=== PATIENT | male | born 1970 | race Caucasian/White ===

== ENCOUNTER 2018-06-11 20:21 | Emergency (ER) | payer OTHER ==
[~2018-06-11] VITALS: Ht 177.8 cm; Wt 117.9 kg
[2018-06-11 23:21] LABS: BASOPHILS ABSOLUTE AUTO 0.04 K/mm3 (0.00-0.23); BASOPHILS PERCENT AUTO 0 % (0-2); EOSINOPHILS PERCENT AUTO 2 % (0-6); Hemoglobin 15.2 g/dL (13.5-17.5); IMMATURE GRAN ABSOLUTE AUTO 0.03 K/mm3 (0.00-0.10); IMMATURE GRAN PERCENT AUTO 0 % (0-1); LYMPHOCYTES ABSOLUTE AUTO 2.44 K/mm3 (0.84-5.20); LYMPHOCYTES PERCENT AUTO 22 % (21-46); MONOCYTES ABSOLUTE AUTO 0.95 K/mm3 (0.16-1.47); MONOCYTES PERCENT AUTO 8 % (4-13); Mean Corpuscular HGB 29.9 pg (26.0-34.0); Mean Corpuscular HGB Conc 32.3 g/dL (31.5-36.5); Mean Corpuscular Volume 93 fL (80-100); Mean Platelet Volume 11.8 fL (9.1-12.4); NEUTROPHILS ABSOLUTE AUTO 7.71 K/mm3 (1.96-9.15); NEUTROPHILS PERCENT AUTO 68 % (41-73); Platelet Count 155 K/mm3 (150-400); RDW Coefficient Variation 12.7 % (11.7-14.2); RDW Standard Deviation 43.6 fL (35.1-46.3); Red Blood Cell Count 5.08 M/mm3 (4.30-5.90); White Blood Cell Count 11.37 K/mm3 (4.00-11.30)
[2018-06-11 23:40] LABS: Alanine Aminotransfer (ALT/SGP 49 U/L (12-78); Albumin, Blood 4.1 g/dL (3.4-5.0); Albumin/Globulin Ratio 1.2 (0.8-1.8); Alk Phos 77 U/L (50-136); Anion Gap 8 mmol/L (6-16); Aspartate Aminotrans (AST/SGOT 29 U/L (12-37); Bilirubin, Total 0.6 mg/dL (0.1-1.0); Blood Urea Nitrogen 14 mg/dL (8-24); Bun/Creatinine Ratio 14.9 (12.0-20.0); CO2, Blood 26 mmol/L (21-32); Calcium, Blood 8.7 mg/dL (8.5-10.1); Chloride, Blood 107 mmol/L (98-108); Creatinine, Blood 0.94 mg/dL (0.60-1.20); Globulin, Blood 3.5 g/dL (2.2-4.0); Glomerular Filtration Rate >60 (60-); Glucose, Blood 93 mg/dL (70-99); Potassium, Blood 4.2 mmol/L (3.5-5.5); Sodium, Blood 141 mmol/L (136-145); Total Protein, Blood 7.6 g/dL (6.4-8.2)
[2018-06-12] MEDS ORDERED: Augmentin 875-1 EACH PO (00:48)
== END 2018-06-12 01:09 | disposition home or self-care (01) ==
LOC: ER 20:21
PROVIDERS: Emergency Medicine
DX: K57.32 Diverticulitis of large intestine without perforation or abscess without bleeding (principal); Z88.8 Allergy status to other drugs, medicaments and biological substances; F17.200 Nicotine dependence, unspecified, uncomplicated
CPT/HCPCS: 36415; 74176; 80053; 85025; 96360; 99284-25; J2405; J3010; J7030

== ENCOUNTER → 2022-12-19 | Outpatient (CLI) | payer OTHER ==
[~2022-12-19] MED LIST: Augmentin 875-1 EACH PO; CYCL10 PO; METF500 PO; NAPR500 PO
[2022-12-21 12:09] LABS: COTININE Negative ng/mL (Cutoff=300)
== END | disposition home or self-care (01) ==
LOC: LAB 15:56 → LAB SHORT 15:56
PROVIDERS: Nurse Practitioner Family
DX: Z01.812 Encounter for preprocedural laboratory examination (principal)

== ENCOUNTER 2023-02-23 10:48 | Day surgery (SDC) | payer OTHER ==
[~2023-02-23] VITALS: Ht 176 cm; Wt 136.3 kg
[~2023-02-23 10:48] MED LIST changes: +FLUO.1OPSU BOTHEYES; +LORA10ER PO; +LOSA50 PO; +MULVITA PO; +Nicoderm Cq1 EACH TOP
[2023-02-23 12:08] VITALS: BP 119/86
--- NOTE | 2023-02-23 12:19 | NUR ---
Ambulatory in Day Surgery. Patient states colon prep results clear/yellow. History, Chart, Medications and Allergies reviewed before start of procedure. Patient confirms NPO status and agrees with scheduled surgery. Pre-Op teaching done. Pt verbalizes understanding. Patient States Post-Procedure ride home has been arranged.
--- NOTE | 2023-02-23 12:36 | NUR ---
02/23/23 [address] RODRIGUEZ; SEE ANESTHESIA RECORDS.
[2023-02-23 14:15] VITALS: BP 119/81
--- NOTE | 2023-02-23 14:36 | NUR ---
Patient up to Ambulate independently. Gait steady. Discharge instructions reviewed with patient. Patient verbalizes understanding. Copy given to patient to take home. Discharged via wheelchair to private car for ride home.
== END 2023-02-23 14:33 | disposition home or self-care (01) ==
LOC: ORSCMMR 10:48 → ORD 12:15 → ORSCMMR 14:33
PROVIDERS: Surgery
PROC: 0DBP8ZX Excision of Rectum, Via Natural or Artificial Opening Endoscopic, Diagnostic (ICD-10-PCS; principal; 2023-02-23 12:15)
PROC: 0DB78ZX Excision of Stomach, Pylorus, Via Natural or Artificial Opening Endoscopic, Diagnostic (ICD-10-PCS; principal; 2023-02-23 12:15)
PROC: 0DB48ZX Excision of Esophagogastric Junction, Via Natural or Artificial Opening Endoscopic, Diagnostic (ICD-10-PCS; principal; 2023-02-23 12:15)
DX: K21.9 Gastro-esophageal reflux disease without esophagitis (principal); Z87.19 Personal history of other diseases of the digestive system; Z12.11 Encounter for screening for malignant neoplasm of colon; K62.1 Rectal polyp; K57.30 Diverticulosis of large intestine without perforation or abscess without bleeding; K29.70 Gastritis, unspecified, without bleeding; I10 Essential (primary) hypertension; E11.9 Type 2 diabetes mellitus without complications; F17.210 Nicotine dependence, cigarettes, uncomplicated; E66.01 Morbid (severe) obesity due to excess calories; Z68.41 Body mass index [BMI] 40.0-44.9, adult; Z79.899 Other long term (current) drug therapy
CPT/HCPCS: 82947; 88305; 88342; J2704; J7120

== ENCOUNTER 2024-05-22 00:20 | Inpatient (IN) | payer OTHER ==
[~2024-05-22] VITALS: Ht 180.3 cm; Wt 137.2 kg
[2024-05-22] MEDS ORDERED: Albuterol 2.5 MG/3 ML VIAL INH ONE (00:25)
[2024-05-22 00:32] LABS: Hematocrit 48.1 % (37.0-53.0); Mean Corpuscular HGB 29.5 pg (26.0-34.0); Mean Corpuscular HGB Conc 33.3 g/dL (31.5-36.5); Mean Corpuscular Volume 89 fL (80-100); Platelet Count 150 K/mm3 (150-400); RDW Coefficient Variation 14.1 % (11.7-14.2); RDW Standard Deviation 45.8 fL (35.1-46.3); Red Blood Cell Count 5.42 M/mm3 (4.30-5.90); White Blood Cell Count 17.88 K/mm3 (4.00-11.30)
[2024-05-22 00:38] LABS: pH Blood Venous 7.32 (7.34-7.37)
[2024-05-22 00:39] LABS: Base Excess Venous 4.3 mmol/L; Bicarbonate Venous 25.4 mmol/L (24.0-30.0); PCO2 Venous 58.9 mmHg (38-42)
[2024-05-22] MEDS ORDERED: Mag Hydrox/AL Hydrox/Simeth 30 ML UDC PO ONE (00:45)
[2024-05-22] MEDS ORDERED: Ondansetron HCl 2 MG / ML 2ML Vial IV ONE (00:45)
[2024-05-22 00:50] LABS: Albumin, Blood 3.1 g/dL (3.4-5.0); Albumin/Globulin Ratio 0.8 (0.8-1.8); Bilirubin, Total 0.8 mg/dL (0.1-1.0); Bun/Creatinine Ratio 16.3 (12.0-20.0); Calcium, Blood 8.3 mg/dL (8.5-10.1); Creatinine, Blood 1.96 mg/dL (0.60-1.20); Globulin, Blood 3.8 g/dL (2.2-4.0); Magnesium, Blood 2.3 mg/dL (1.6-2.4); Potassium, Blood 4.4 mmol/L (3.5-5.5); Total Protein, Blood 6.9 g/dL (6.4-8.2)
[2024-05-22 00:51] LABS: BAND PERCENT MAN 30 % (0-8); BASOPHILS PERCENT MAN 0 % (0-2); EOSINOPHILS PERCENT MAN 0 % (0-6); LYMPHOCYTES ABSOLUTE MAN 0.71 K/mm3 (0.84-5.20); LYMPHOCYTES PERCENT MAN 4 % (21-46); MONOCYTES ABSOLUTE MAN 0.71 K/mm3 (0.16-1.47); MONOCYTES PERCENT MAN 4 % (4-13); NEUTROPHILS ABSOLUTE MAN 16.44 K/mm3 (1.96-9.15); SEG NEUTROPHILS PERCENT MAN 62 % (41-73); TOTAL CELLS COUNTED 100
[2024-05-22] MEDS ORDERED: Azithromycin 500 MG in NS 250 ML IV ONE (00:55)
[2024-05-22] MEDS ORDERED: NS 1,000 ML IV SCH ×2 (00:55→01:15)
[2024-05-22] MEDS ORDERED: CefTRIAXone Sodium 1,000 MG in NS 50 ML IV ONE (00:55)
[2024-05-22] MEDS ORDERED: CefTRIAXone Sodium 2,000 MG in NS 100 ML IV ONE (01:00)
[2024-05-22 01:11] LABS: Influenza B, PCR NEGATIVE (NEGATIVE); Resp Syncytial Virus, PCR NEGATIVE (NEGATIVE); SARS-Cov-2 (COVID-19) PCR, MMC NEGATIVE (NEGATIVE)
[2024-05-22 01:20] LABS: Influenza A, PCR POSITIVE (NEGATIVE)
[2024-05-22] MEDS ORDERED: Calcium Carbonate 500 MG Tab Chew PO ONE (01:40)
[2024-05-22] MEDS ORDERED: FLU VACC TS2024-25(6MOS UP)/PF 45 MCG/0.5 ML SYRINGE IM ONE (01:40)
[2024-05-22] MEDS ORDERED: Ipratropium/Albuterol SulF 2.5-0.5MG/3 ML Amp INH PRN (01:40)
[2024-05-22] MEDS ORDERED: Ondansetron HCl 2 MG / ML 2ML Vial IV PRN (01:45)
[2024-05-22] MEDS ORDERED: NS 1,000 ML IV ONE (01:45)
[2024-05-22] MEDS ORDERED: MethylPREDNISolone Sod Succ 125 MG Vial IV SCH (02:00)
[2024-05-22] MEDS ORDERED: Acetaminophen 325 MG TABLET PO PRN (02:35)
[2024-05-22 03:30] LABS: Source, Urine Clean Catch
[2024-05-22 03:32] LABS: Hematocrit 47.8 % (37.0-53.0); Hemoglobin 15.8 g/dL (13.5-17.5); Mean Corpuscular HGB 29.6 pg (26.0-34.0); Mean Corpuscular HGB Conc 33.1 g/dL (31.5-36.5); Mean Corpuscular Volume 90 fL (80-100); Mean Platelet Volume 10.7 fL (9.1-12.4); Platelet Count 143 K/mm3 (150-400); RDW Coefficient Variation 14.3 % (11.7-14.2); Red Blood Cell Count 5.34 M/mm3 (4.30-5.90); White Blood Cell Count 17.21 K/mm3 (4.00-11.30)
[2024-05-22 03:37] LABS: Bilirubin, Urine Neg (Neg); Blood, Urine 2+ (Neg); Glucose Qualitative, Urine Neg (Neg); Ketones, Urine Neg (Neg); Leukocyte Esterase, Urine 1+ (Neg); Nitrite, Urine Neg (Neg); Protein, Urine 3+ (Neg); Specific Gravity, Urine 1.025 (1.003-1.022); Urobilinogen, Urine 1+ (Normal)
[2024-05-22 03:50] LABS: Appearance, Urine Hazy (Clear); Color, Urine Yellow (P-Yellow)
[2024-05-22 03:51] LABS: Bacteria Few /hpf; Red Blood Cells, Urine 0-2 /hpf (0-2); Squamous Epithelial Cells Rare /hpf (Few)
[2024-05-22 03:52] LABS: Amorphous Mod (0-Heavy)
[2024-05-22 04:01] LABS: Albumin/Globulin Ratio 0.8 (0.8-1.8); Bilirubin, Total 0.9 mg/dL (0.1-1.0); Bun/Creatinine Ratio 20.1 (12.0-20.0); Calcium, Blood 8.1 mg/dL (8.5-10.1); Creatinine, Blood 1.54 mg/dL (0.60-1.20); Globulin, Blood 3.9 g/dL (2.2-4.0); Magnesium, Blood 2.2 mg/dL (1.6-2.4); Potassium, Blood 4.3 mmol/L (3.5-5.5); Total Protein, Blood 6.9 g/dL (6.4-8.2)
[2024-05-22 04:17] LABS: BAND PERCENT MAN 41 % (0-8); BASOPHILS PERCENT MAN 0 % (0-2); EOSINOPHILS PERCENT MAN 0 % (0-6); LYMPHOCYTES ABSOLUTE MAN 1.03 K/mm3 (0.84-5.20); LYMPHOCYTES PERCENT MAN 6 % (21-46); MONOCYTES ABSOLUTE MAN 1.03 K/mm3 (0.16-1.47); MONOCYTES PERCENT MAN 6 % (4-13); MYELOCYTE ABSOLUTE MAN 0.17 K/mm3 (0.00-0.00); MYELOCYTE PERCENT MAN 1 % (0-0); NEUTROPHILS ABSOLUTE MAN 14.97 K/mm3 (1.96-9.15); SEG NEUTROPHILS PERCENT MAN 46 % (41-73); TOTAL CELLS COUNTED 100
[2024-05-22 05:00] VITALS: BP 126/95
[2024-05-22] MEDS ORDERED: Naproxen 250 MG TAB PO PRN (05:20)
--- NOTE | 2024-05-22 06:51 | NUR ---
SHIFT SUMMARY PATIENT ARRIVED TO PCU 08 VIA STRETCHER. HE IS ALERT AND ORIENTED X4, STEADY ON HIS FEET AND ABLE TO AMBULATE WITH MINIMAL ASSISTANCE FOR LINE MANAGEMENT. PATIENT ARRIVED ON 12 LITERS O2 VIA HIGH FLOW NASAL CANULA, SOME DYSPNIA NOTED, PATIENT HAS BEEN TITRATED TO 6 LITERS O2 CURRENTLY WITH SPO2 >90%. PATIENT MEDICATED PER EMAR FOR HEADACHE. VITAL SIGNS STABLE, SINUS RHYTHM ON TELE. WILL CONTINUE TO MONITOR. CALL LIGHT WITHIN REACH.
[2024-05-22 07:16] VITALS: BP 134/88
--- NOTE | 2024-05-22 07:29 | NUR ---
CRITICAL LAB RECEIVED AT 0719 FOR LACTIC OF 2.8. CHARGE NOTIFIED AT 0720, MD NOTIFIED AT 0725. NO NEW ORDERS AT THIS TIME.
[2024-05-22 08:49] LABS: Bicarbonate Venous 23.4 mmol/L (24.0-30.0); pH Blood Venous 7.36 (7.34-7.37)
[2024-05-22] MEDS ORDERED: Enoxaparin 40 MG/0.4 ML SYR SC SCH (09:00)
[2024-05-22] MEDS ORDERED: Lactated Ringer's 1,000 ML IV SCH (10:25)
[2024-05-22 12:44] VITALS: BP 147/107
[2024-05-22] MEDS ORDERED: Pantoprazole Sodium 40 MG Tab PO SCH (13:00)
[2024-05-22] MEDS ORDERED: Calcium Carbonate 500 MG Tab Chew PO PRN (15:25)
[2024-05-22 15:49] VITALS: BP 158/97
--- NOTE | 2024-05-22 18:10 | NUR ---
SHIFT SUMMARY PT ALERT AND ORIENTED X4 T/O SHIFT. PT DENIED ANY PAIN. SINUS RHYTHM, HR 80'S-90'S, PT DENIED CHEST PAIN/PRESSURE. PT CURRENTLY ON 8L HF/HUM NC AND SATTING ABOVE 90%. PT CONTINENT OF URINE AND STOOL. PT REPORTED INDIGESTION AND WAS TREATED WITH TUMS. NO ACUTE EVENTS THIS SHIFT.
[2024-05-22 20:02] VITALS: BP 168/114
[2024-05-22] MEDS ORDERED: HydrALAZINE HCl 25 MG Tab PO PRN (21:00)
[2024-05-22] MEDS ORDERED: Azithromycin 500 MG in NS 250 ML IV SCH (21:00)
[2024-05-22] MEDS ORDERED: CefTRIAXone Sodium 1,000 MG in NS 100 ML IV SCH (21:00)
[2024-05-23] VITALS (7 sets, daily range): BP systolic 127–180; BP diastolic 82–110
[2024-05-23 06:00] LABS: BASOPHILS ABSOLUTE AUTO 0.07 K/mm3 (0.00-0.23); BASOPHILS PERCENT AUTO 0 % (0-2); EOSINOPHILS ABSOLUTE AUTO 0.13 K/mm3 (0.00-0.68); EOSINOPHILS PERCENT AUTO 1 % (0-6); Hematocrit 48.1 % (37.0-53.0); Hemoglobin 15.9 g/dL (13.5-17.5); IMMATURE GRAN ABSOLUTE AUTO 0.16 K/mm3 (0.00-0.10); IMMATURE GRAN PERCENT AUTO 1 % (0-1); LYMPHOCYTES ABSOLUTE AUTO 1.26 K/mm3 (0.84-5.20); LYMPHOCYTES PERCENT AUTO 6 % (21-46); MONOCYTES ABSOLUTE AUTO 1.49 K/mm3 (0.16-1.47); MONOCYTES PERCENT AUTO 7 % (4-13); Mean Corpuscular HGB 29.8 pg (26.0-34.0); Mean Corpuscular HGB Conc 33.1 g/dL (31.5-36.5); Mean Corpuscular Volume 90 fL (80-100); Mean Platelet Volume 11.8 fL (9.1-12.4); NEUTROPHILS ABSOLUTE AUTO 19.21 K/mm3 (1.96-9.15); NEUTROPHILS PERCENT AUTO 86 % (41-73); Platelet Count 160 K/mm3 (150-400); RDW Coefficient Variation 14.2 % (11.7-14.2); RDW Standard Deviation 47.4 fL (35.1-46.3); Red Blood Cell Count 5.33 M/mm3 (4.30-5.90); White Blood Cell Count 22.32 K/mm3 (4.00-11.30)
[2024-05-23 06:27] LABS: Albumin/Globulin Ratio 0.7 (0.8-1.8); Bilirubin, Total 0.4 mg/dL (0.1-1.0); Bun/Creatinine Ratio 28.1 (12.0-20.0); Calcium, Blood 9.2 mg/dL (8.5-10.1); Creatinine, Blood 0.78 mg/dL (0.60-1.20); Globulin, Blood 4.4 g/dL (2.2-4.0); Total Protein, Blood 7.4 g/dL (6.4-8.2)
--- NOTE | 2024-05-23 06:45 | NUR ---
SHIFT SUMMARY HTN NOTED OVERNIGHT. NOC UPDATED. NEW PRN ORDERS FOR HYDRALAZINE. SEE ORDER DETAILS. WEANED FROM 6L O2 TO 4L O2 VIA NC THIS SHIFT. PT APPEARS TO BE TOLERATING THIS WELL.
[2024-05-23] MEDS ORDERED: Losartan Potassium 50 MG Tab PO ONE (10:00)
[2024-05-23] MEDS ORDERED: Famotidine 20 MG Tab PO ONE (11:00)
--- NOTE | 2024-05-23 17:27 | NUR ---
SHIFT SUMMARY PT REMAINED A/OX4, DENIED PAIN. BP ELEVATED IN 140'S-150'S. PT RESUMED AT HOME CARDIAC MEDS TODAY. HR 80'S. PT DENIED CHEST PAIN/PRESSURE, BUT INTERMITTENTLY DIAPHORETIC. PT AMBULATING INDEPENDENTLY IN ROOM WITH SBA FOR LINE MANAGEMENT. CONTINTENT OF URINE AND STOOL. PT REPORTS CHRONIC INDIGESTION. SKIN INTACT. PT ON 1L NC AND SATTING BETWEEN 90-92%. WHEEZING NOTED IN BASES. PT RECEIVING BREATHING TREATMENTS FROM RT. PT TO HAVE OVERNIGHT SLEEP STUDY THIS EVENING.
[2024-05-23] MEDS ORDERED: Famotidine 20 MG Tab PO SCH (21:00)
[2024-05-23] MEDS ORDERED: Lactobacil 2-S.Thermo-Bifido 1 1 Cap PO SCH (21:00)
[2024-05-23] MEDS ORDERED: Losartan Potassium 50 MG Tab PO SCH (21:00)
[2024-05-24 06:03] VITALS: BP 157/108
--- NOTE | 2024-05-24 06:10 | NUR ---
SHIFT SUMMARY PT HAD OVERALL UNEVENTFUL NIGHT. SLEEP STUDY DONE. HYPERTENSIVE BP'S. NO S/S ACUTE DISTRESS.
[2024-05-24 08:02] VITALS: BP 158/115
[2024-05-24 08:32] LABS: BASOPHILS ABSOLUTE AUTO 0.06 K/mm3 (0.00-0.23); BASOPHILS PERCENT AUTO 0 % (0-2); EOSINOPHILS PERCENT AUTO 0 % (0-6); Hematocrit 47.6 % (37.0-53.0); Hemoglobin 15.5 g/dL (13.5-17.5); Mean Corpuscular HGB 29.7 pg (26.0-34.0); Mean Corpuscular HGB Conc 32.6 g/dL (31.5-36.5); Mean Corpuscular Volume 91 fL (80-100); Mean Platelet Volume 11.9 fL (9.1-12.4); Platelet Count 181 K/mm3 (150-400); RDW Standard Deviation 47.8 fL (35.1-46.3); Red Blood Cell Count 5.22 M/mm3 (4.30-5.90); White Blood Cell Count 21.25 K/mm3 (4.00-11.30)
[2024-05-24 08:48] LABS: IMMATURE GRAN ABSOLUTE AUTO 0.21 K/mm3 (0.00-0.10); IMMATURE GRAN PERCENT AUTO 1 % (0-1); LYMPHOCYTES ABSOLUTE AUTO 2.12 K/mm3 (0.84-5.20); LYMPHOCYTES PERCENT AUTO 10 % (21-46); MONOCYTES ABSOLUTE AUTO 1.09 K/mm3 (0.16-1.47); MONOCYTES PERCENT AUTO 5 % (4-13); NEUTROPHILS ABSOLUTE AUTO 17.77 K/mm3 (1.96-9.15); NEUTROPHILS PERCENT AUTO 84 % (41-73)
[2024-05-24 08:58] LABS: Albumin, Blood 2.9 g/dL (3.4-5.0); Albumin/Globulin Ratio 0.7 (0.8-1.8); Bilirubin, Total 0.5 mg/dL (0.1-1.0); Bun/Creatinine Ratio 28.4 (12.0-20.0); Calcium, Blood 9.1 mg/dL (8.5-10.1); Creatinine, Blood 0.81 mg/dL (0.60-1.20); Globulin, Blood 4.1 g/dL (2.2-4.0); Potassium, Blood 5.2 mmol/L (3.5-5.5)
[2024-05-24] MEDS ORDERED: Losartan Potassium 50 MG Tab PO SCH (09:00)
[2024-05-24 11:09] VITALS: BP 157/116
[2024-05-24] MEDS ORDERED: AMOCLA875 PO (12:27)
--- NOTE | 2024-05-24 13:50 | NUR ---
D/C SUMMARY THE PT IS A&OX4, IND IN THE ROOM. PT'S VITAL SIGNS ARE STABLE AT THIS TIME, BP IS ELEVATED. PT STATES THIS IS HIS NORMAL AND HE STILL WANTS TO GO HOME. HE STATED HE WILL TALK TO HIS DR. ABOUT MEDICATIONS. HE DID NOT TAKE HIS [place] FOR "FIVE DAYS". HE DID D/C ABOUT 1350. IV WAS PULLED. [facility] THE [facility] HAD HIS HOME MEDICATIONS AND BELONGINGS RETURNED. MEDICATIONS OBTAINED FROM OUR PHARMACY. NO FURTHER NOTES.
== END 2024-05-24 13:50 | disposition home or self-care (01) | DRG 871 ==
LOC: ER 00:20 → PCU 01:38 → ERHOLD 01:38 → PCU 04:37
PROVIDERS: Student in an Organized Health Care Education/Training Program; ADMIT Internal Medicine
DX: A40.3 Sepsis due to Streptococcus pneumoniae (principal); I21.A1 Myocardial infarction type 2; J96.01 Acute respiratory failure with hypoxia; J96.02 Acute respiratory failure with hypercapnia; J10.01 Influenza due to other identified influenza virus with the same other identified influenza virus pneumonia; J10.08 Influenza due to other identified influenza virus with other specified pneumonia; J13 Pneumonia due to Streptococcus pneumoniae; R65.20 Severe sepsis without septic shock; E87.21 Acute metabolic acidosis; J44.0 Chronic obstructive pulmonary disease with (acute) lower respiratory infection; N17.9 Acute kidney failure, unspecified; I10 Essential (primary) hypertension; F17.210 Nicotine dependence, cigarettes, uncomplicated; Z88.8 Allergy status to other drugs, medicaments and biological substances; Z71.6 Tobacco abuse counseling
CPT/HCPCS: 0241U; 36415; 71045; 80053; 81001; 82803; 83605; 83735; 83880; 84484; 85025; 87040; 87070; 87086; 87186; 87205; 93005; 93010; 93306; 94640; 94644; 94664; 94760; 94762; 96374; 96375; 99285-25; A9270; J0456; J0696; J2405; J2919; J7030; J7050; J7120

== ENCOUNTER 2024-05-26 05:30 | Emergency (ER) | payer OTHER ==
[~2024-05-26] VITALS: Ht 177.8 cm; Wt 136.1 kg
[~2024-05-26 05:30] MED LIST changes: +AMOCLA875 PO
[2024-05-26 06:00] LABS: BASOPHILS ABSOLUTE AUTO 0.18 K/mm3 (0.00-0.23); BASOPHILS PERCENT AUTO 1 % (0-2); EOSINOPHILS ABSOLUTE AUTO 0.03 K/mm3 (0.00-0.68); EOSINOPHILS PERCENT AUTO 0 % (0-6); Hematocrit 48.3 % (37.0-53.0); Hemoglobin 16.2 g/dL (13.5-17.5); IMMATURE GRAN ABSOLUTE AUTO 0.76 K/mm3 (0.00-0.10); IMMATURE GRAN PERCENT AUTO 4 % (0-1); LYMPHOCYTES ABSOLUTE AUTO 2.22 K/mm3 (0.84-5.20); LYMPHOCYTES PERCENT AUTO 12 % (21-46); MONOCYTES ABSOLUTE AUTO 2.01 K/mm3 (0.16-1.47); MONOCYTES PERCENT AUTO 11 % (4-13); Mean Corpuscular HGB 29.5 pg (26.0-34.0); Mean Corpuscular HGB Conc 33.5 g/dL (31.5-36.5); Mean Corpuscular Volume 88 fL (80-100); Mean Platelet Volume 11.8 fL (9.1-12.4); NEUTROPHILS ABSOLUTE AUTO 12.77 K/mm3 (1.96-9.15); NEUTROPHILS PERCENT AUTO 71 % (41-73); Platelet Count 203 K/mm3 (150-400); RDW Coefficient Variation 13.3 % (11.7-14.2); RDW Standard Deviation 43.2 fL (35.1-46.3); White Blood Cell Count 17.97 K/mm3 (4.00-11.30)
[2024-05-26 06:23] LABS: Albumin/Globulin Ratio 0.8 (0.8-1.8); Bilirubin, Total 1.1 mg/dL (0.1-1.0); Bun/Creatinine Ratio 21.9 (12.0-20.0); Creatinine, Blood 0.82 mg/dL (0.60-1.20); Potassium, Blood 4.2 mmol/L (3.5-5.5)
[2024-05-26] MEDS ORDERED: HydrALAZINE HCl 20 MG / ML 1ML Vial IV ONE (06:40)
[2024-05-26] MEDS ORDERED: Ipratropium/Albuterol SulF 2.5-0.5MG/3 ML Amp INH ONE (06:45)
[2024-05-26] MEDS ORDERED: HyDROXyzine HCl 25 MG Tab PO ONE (06:45)
[2024-05-26] MEDS ORDERED: Nitroglycerin 0.4 MG SUBL SL ONE (10:40)
[2024-05-26] MEDS ORDERED: Labetalol HCL 5 MG/ML 4ML Injection (Single Dose) IV ONE (12:15)
[2024-05-26] MEDS ORDERED: LORazepam 1 MG Tab PO ONE (12:50)
[2024-05-26] MEDS ORDERED: DOXY100 PO (13:18)
[2024-05-26 13:50] VITALS: BP 149/109
== END 2024-05-26 13:47 | disposition home or self-care (01) ==
LOC: ER 05:30
PROVIDERS: Student in an Organized Health Care Education/Training Program
DX: I10 Essential (primary) hypertension (principal); R21 Rash and other nonspecific skin eruption; F17.290 Nicotine dependence, other tobacco product, uncomplicated; Z88.8 Allergy status to other drugs, medicaments and biological substances
CPT/HCPCS: 71046; 80053; 83880; 84484; 85025; 93005; 93010; 94640; 94664; 96374; 96375; 99284-25; A9270; J0360

== ENCOUNTER → 2024-05-27 | Outpatient (CLI) | payer OTHER ==
[~2024-05-27] MED LIST changes: +DOXY100 PO
[2024-05-28 12:46] LABS: Stool Occult Blood Guaiac 1 Neg (Neg)
== END | disposition home or self-care (01) ==
LOC: LAB SHORT 11:59 → LAB 11:59
PROVIDERS: Nurse Practitioner Family
DX: K92.1 Melena (principal)
CPT/HCPCS: 82272

== ENCOUNTER → 2024-06-06 | Outpatient (CLI) | payer OTHER ==
[2024-06-06 14:32] LABS: Stool Occult Blood Guaiac 1 Neg (Neg)
[2024-06-06 15:05] LABS: C DIFFICILE DNA NEGATIVE (Negative)
== END ==
LOC: LAB 11:53 → LAB SHORT 11:53
PROVIDERS: Nurse Practitioner Family
DX: R19.7 Diarrhea, unspecified (principal); K92.1 Melena
CPT/HCPCS: 82272; 87493